=== PATIENT | male | born 1995 | race Caucasian/White ===

== ENCOUNTER 2020-09-23 13:50 | Emergency (ER) | payer MEDICAID ==
[~2020-09-23] VITALS: Ht 177.8 cm; Wt 68.2 kg
[2020-09-23 13:59] VITALS: BP 106/64
[2020-09-23] MEDS ORDERED: triamcinolone acetonide 40mg/ml inj IM ONE (15:20)
[2020-09-23] MEDS ORDERED: PRED10TA PO (15:34)
== END 2020-09-23 15:39 | disposition left against medical advice (07) ==
LOC: ER 13:50
DX: L23.7 Allergic contact dermatitis due to plants, except food (principal); Z79.899 Other long term (current) drug therapy
CPT/HCPCS: 96372; 99283; J3301

== ENCOUNTER 2020-10-17 04:26 | Emergency (ER) | payer MEDICAID ==
[~2020-10-17] VITALS: Ht 175.3 cm; Wt 68.2 kg
[~2020-10-17 04:26] MED LIST: PRED10TA PO
[2020-10-17 04:36] VITALS: BP 105/62
[2020-10-17] MEDS ORDERED: predniSONE 20 mg tablet PO ONE (04:55)
[2020-10-17] MEDS ORDERED: PRED20TA PO (04:56)
== END 2020-10-17 05:13 | disposition home or self-care (01) ==
LOC: ER 04:27
DX: L23.7 Allergic contact dermatitis due to plants, except food (principal); Z79.899 Other long term (current) drug therapy
CPT/HCPCS: 99283; J7512

== ENCOUNTER 2022-12-14 07:22 | Emergency (ER) | payer MEDICAID ==
[~2022-12-14] VITALS: Ht 175.3 cm; Wt 65.0 kg
[2022-12-14 07:28] VITALS: BP 106/72
[2022-12-14] MEDS ORDERED: triamcinolone acetonide 40mg/ml inj IM ONE (08:15)
[2022-12-14] MEDS ORDERED: PRED10TA23 PO (08:18)
== END 2022-12-14 08:30 | disposition home or self-care (01) ==
LOC: ER 07:22
DX: L23.7 Allergic contact dermatitis due to plants, except food (principal)
CPT/HCPCS: 96372; 99283; J3301